=== PATIENT | female | born 1985 | race African-American/Black ===

== ENCOUNTER 2017-12-31 20:41 | Emergency (ER) | payer OTHER ==
[~2017-12-31] VITALS: Ht 167.6 cm; Wt 78.0 kg
[2018-01-01] MEDS ORDERED: SODIUM CHLORIDE 0.9% 1,000 ML IV ONE (00:04)
[2018-01-01 00:40] LABS: BASOPHILS % 0.4 % (0.0-2.0); EOSINOPHILS % 1.8 % (0.0-5.0); HEMATOCRIT. 35.2 % (36.0-48.0); LYMPHOCYTES % 22.4 % (20.0-50.0); MEAN CORPUSCULAR HEMOGLOBIN 30.1 pg (28.0-32.0); MEAN PLATELET VOLUME 9.6 fl (7.4-10.4); MONOCYTES % 7.8 % (2.0-8.0); NEUTROPHILS % 67.6 % (40.0-76.0); PLATELET 200 x1000/uL (130-400); RED CELL DISTRIBUTION WIDTH 13.9 % (11.6-14.6)
[2018-01-01 00:46] LABS: CHLORIDE 107 mEq/L (98-107)
[2018-01-01 00:51] LABS: HCG SCREEN NEGATIVE
[2018-01-01 01:24] LABS: CLARITY URINE CLEAR (CLEAR); COLOR URINE YELLOW (YELLOW); KETONES URINE NEGATIVE (NEGATIVE); LEUKOCYTE ESTERASE URINE NEGATIVE (NEGATIVE); NITRITE URINE NEGATIVE (NEGATIVE); OCCULT BLOOD URINE TRACE (NEGATIVE); PH URINE 6.5 (4.5-8.0); PROTEIN URINE NEGATIVE (NEGATIVE); SPECIFIC GRAVITY URINE 1.015 (1.005-1.030); UROBILINOGEN URINE 0.2 E.U./dL (0.2-1.0)
[2018-01-01 01:47] VITALS: BP 100/80
[2018-01-01] MEDS ORDERED: CEFTRIAXONE 1 G PREMIX 50 ML IV ONE (02:00)
== END 2018-01-01 01:49 | disposition home or self-care (01) ==
LOC: ER 20:41
DX: N39.0 Urinary tract infection, site not specified (principal); F12.10 Cannabis abuse, uncomplicated; F17.200 Nicotine dependence, unspecified, uncomplicated
CPT/HCPCS: 36415; 80053; 81003; 81025; 83605; 83690; 84703; 85025; 96365; 99284; J0696; J7030

== ENCOUNTER 2024-09-08 02:02 | Emergency (ER) | payer MEDICAID ==
[~2024-09-08] VITALS: Ht 167.6 cm; Wt 91.0 kg
[~2024-09-08 02:02] MED LIST: DOXY100T2 MT; LEVO-65 MT; METR-167 MT
[2024-09-08 03:14] VITALS: O2SAT 99
[2024-09-08 04:13] LABS: CLARITY URINE CLOUDY (CLEAR); COLOR URINE YELLOW (YELLOW); GLUCOSE URINE NEGATIVE (NEGATIVE); KETONES URINE NEGATIVE (NEGATIVE); PH URINE 5.5 (4.5-8.0); PROTEIN URINE NEGATIVE (NEGATIVE); SPECIFIC GRAVITY URINE 1.018 (1.005-1.030)
[2024-09-08 04:14] LABS: LEUKOCYTE ESTERASE URINE 2+ (NEGATIVE); NITRITE URINE POSITIVE (NEGATIVE); OCCULT BLOOD URINE 2+ (NEGATIVE); UROBILINOGEN URINE 0.2 E.U./dL (0.2-1.0)
[2024-09-08 05:05] LABS: SQUAMOUS EPITHELIAL CELL URINE 2+ /lpf (RARE/1+)
[2024-09-08 05:08] LABS: WBC URINE 15-25 /hpf (0-2)
[2024-09-08 05:11] LABS: BACTERIA URINE 4+; RBC URINE 15-25 /hpf (0-2)
[2024-09-08] MEDS: CEPHALEXIN 250MG CAPSULE PO ONE (06:02)
[2024-09-08] MEDS: DIPHENHYDRAMINE 25MG CAPSULE PO ONE (06:02)
[2024-09-08] MEDS: IBUPROFEN 400MG TABLET PO ONE (06:03)
[2024-09-08] MEDS ORDERED: NAPR-681 MT (06:13)
[2024-09-08] MEDS ORDERED: CEPH500C2 MT (06:13)
[2024-09-08] MEDS ORDERED: CETI10CA11 MT (06:13)
[2024-09-08 06:40] VITALS: BP 136/96; PULSE 81; RESP 18; O2SAT 100
[2024-09-08 12:14] LABS: UCG SCREEN NEGATIVE
[2024-09-08 12:15] LABS: UCG KIT LOT# 0000946166
== END 2024-09-08 07:19 | disposition home or self-care (01) ==
LOC: ER 02:02
DX: R10.2 Pelvic and perineal pain (principal); R30.0 Dysuria; F12.90 Cannabis use, unspecified, uncomplicated; Z79.1 Long term (current) use of non-steroidal anti-inflammatories (NSAID); Z79.899 Other long term (current) drug therapy
CPT/HCPCS: 99284; 81003; 81025; 87086; 87186; 87077; Q0163

== ENCOUNTER 2024-12-13 04:07 | Emergency (ER) | payer MEDICAID ==
[~2024-12-13] VITALS: Ht 165.1 cm; Wt 87.0 kg
[~2024-12-13 04:07] MED LIST changes: +CEPH500C2 MT; +CETI10CA11 MT; +NAPR-681 MT
[2024-12-13 04:23] VITALS: O2SAT 100
[2024-12-13] MEDS: KETOROLAC 30MG/ML VIAL IM ONE (04:43)
[2024-12-13 05:02] LABS: BASOPHILS % 0.6 % (0.0-2.0); EOSINOPHILS % 1.0 % (0.0-5.0); HEMATOCRIT. 39.2 % (36.0-48.0); HEMOGLOBIN. 13.0 g/dL (12.0-16.0); LYMPHOCYTES % 31.4 % (20.0-50.0); MEAN PLATELET VOLUME 8.8 fl (7.4-10.4); MONOCYTES % 7.2 % (2.0-8.0); NEUTROPHILS % 59.8 % (40.0-76.0); PLATELET 279 x1000/uL (130-400); RED BLOOD CELL COUNT 4.61 mill/uL (4.2-5.4); RED CELL DISTRIBUTION WIDTH 14.7 % (11.6-14.6)
[2024-12-13 05:04] LABS: CLARITY URINE CLEAR (CLEAR); COLOR URINE YELLOW (YELLOW); GLUCOSE URINE NEGATIVE (NEGATIVE); KETONES URINE NEGATIVE (NEGATIVE); LEUKOCYTE ESTERASE URINE 1+ (NEGATIVE); NITRITE URINE NEGATIVE (NEGATIVE); OCCULT BLOOD URINE 3+ (NEGATIVE); PH URINE 6.0 (4.5-8.0); PROTEIN URINE NEGATIVE (NEGATIVE); SPECIFIC GRAVITY URINE 1.017 (1.005-1.030); UROBILINOGEN URINE 0.2 E.U./dL (0.2-1.0)
[2024-12-13 05:17] LABS: CREATININE 0.7 mg/dL (0.6-1.0); UREA NITROGEN BLOOD 12 mg/dL (9-23)
[2024-12-13 05:19] LABS: ASPARTATE AMINOTRANSFERASE 15 IU/L (<34); BILIRUBIN DIRECT 0.1 mg/dL (<=3.0)
[2024-12-13 05:20] LABS: BILIRUBIN TOTAL 0.4 mg/dL (0.1-1.0); PROTEIN TOTAL 7.0 g/dL (6.0-8.3)
[2024-12-13] MEDS: DOXYCYCLINE HYCLATE 100MG CAPSULE PO ONE (07:02)
[2024-12-13] MEDS: METRONIDAZOLE 500MG TABLET PO ONE (07:02)
[2024-12-13] MEDS: CEFTRIAXONE SODIUM 500MG VIAL IM ONE (07:02)
[2024-12-13 07:20] LABS: BACTERIA URINE 2+; RBC URINE 0-2 /hpf (0-2); SQUAMOUS EPITHELIAL CELL URINE 1+ /lpf (RARE/1+)
[2024-12-13] MEDS ORDERED: CEPH500C2 PO (08:25)
[2024-12-13] MEDS ORDERED: DOXY100T2 PO (08:25)
[2024-12-13 08:53] VITALS: BP 148/84; PULSE 86; RESP 13; TEMP 36.9; O2SAT 99
[2024-12-15 05:08] LABS: CHLAMYDIA TRACHOMATIS NAA Negative (Negative); NEISSERIA GONORRHOEAE NAA Negative (Negative)
== END 2024-12-13 09:11 | disposition home or self-care (01) ==
LOC: ER 04:07
DX: N39.0 Urinary tract infection, site not specified (principal); F12.90 Cannabis use, unspecified, uncomplicated; Z79.899 Other long term (current) drug therapy
CPT/HCPCS: 87491; 87591; 80076; 80048; 81003; 81025; 85025; 87086; 87186; 87210; 87077; 36415; 76830; 76856; 96372; 99285; J0696; Z7610; J1885